=== PATIENT | female | born 1995 | race Hispanic/Latino ===

== ENCOUNTER 2018-12-06 20:21 | Emergency (ER) | payer SELFPAY ==
[2018-12-06 21:39] LABS: Absolute Lymphocytes (CBC) 3.1 K/uL (0.7-4.9); Absolute Monocytes 0.9 K/uL (0.1-1.3); Absolute Neutrophil 6.7 K/uL (1.8-8.0); Basophils % 0.9 % (0-1.3); Eosinophils % 0.6 % (0-4.4); Hematocrit 38.8 % (36.0-45.0); Lymphocytes % 28.2 % (15.3-44.8); MPV 7.9 fL (7.6-11.3); Monocytes % 8.6 % (3.3-12.3); RBC Red Blood Cell Count 4.41 M/uL (3.86-4.86)
[2018-12-06 21:56] LABS: BUN Blood Urea Nitrogen 11 mg/dL (7-18); Bicarbonate 24 mmol/L (21-32); Glucose Level 86 mg/dL (74-106); Potassium 3.4 mmol/L (3.5-5.1); Sodium Level 141 mmol/L (136-145)
--- NOTE | 2018-12-06 22:32 | ER ---
Nurse's Notes [facility] Name: Rafaela Farmer Age: 23 yrs Sex: Female : 1995 Arrival Date: 12/06/2018 Time: 20:24 Bed 13 Private MD: Diagnosis: Other specified abnormal uterine and vaginal bleeding-Secondary to Contraceptive use Presentation: 12/06 20:38 Presenting complaint: Patient states: "My and my had unprotected sex and I took lp1 Plan B, but I've been bleeding for 9 days and beginning to get light headed, nauseous"; Complaint of pelvic pain, vaginal bleeding with clots. Transition of care: patient was not received from another setting of care. Onset of symptoms was December 06, 2018. Risk Assessment: Do you want to hurt yourself or someone else? Patient reports no desire to harm self or others. Initial Sepsis Screen: Does the patient meet any 2 criteria? No. Patient's initial sepsis screen is negative. Does the patient have a suspected source of infection? No. Patient's initial sepsis screen is negative. Care prior to arrival: None. 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 - Social history:: Smoking status: Patient/guardian denies using tobacco. - Ebola Screening: : No symptoms or risks identified at this time. Screenin:35 Abuse screen: Denies threats or abuse. Denies injuries from another. Nutritional rr5 screening: No deficits noted. Tuberculosis screening: No symptoms or risk factors identified. Fall Risk IV access (20 points). Total Freedman Fall Scale indicates No Risk (0-24 pts). Assessment: 21:00 General: Appears in no apparent distress. comfortable, Behavior is calm, cooperative, rr5 appropriate for age. 21:00 Pain: Denies pain. Neuro: Level of Consciousness is awake, alert, obeys commands, rr5 Oriented to person, place, time, situation, Appropriate for age. Cardiovascular: Capillary refill < 3 seconds Patient's skin is warm and dry. Respiratory: Airway is patent Respiratory effort is even, unlabored, Respiratory pattern is regular, symmetrical. GI: No signs and/or symptoms were reported involving the gastrointestinal system. : Reports vaginal bleeding that is bright red, moderate flow, since yesterday. EENT: No signs and/or symptoms were reported regarding the EENT system. Derm: Skin is intact, Skin temperature is warm. Musculoskeletal: Capillary refill < 3 seconds, Range of motion: intact in all extremities. 21:00 : Urine is clear. rr5 21:35 Reassessment: Patient appears in no apparent distress at this time. No changes from rr5 previously documented assessment. Patient is alert, oriented x 3, equal unlabored respirations, skin warm/dry/pink. awaiting for result. 22:40 Reassessment: Patient appears in no apparent distress at this time. Patient is alert, rr5 oriented x 3, equal unlabored respirations, skin warm/dry/pink. discharge instruction given and explained without complaints made. Vital Signs: 20:39 BP 134 / 91; Pulse 70; Resp 18; Temp 99.2(O); Pulse Ox 100% on R/A; Weight 86.18 kg; lp1 Height 5 ft. 1 in. (154.94 cm); Pain 8/10; 21:30 BP 121 / 76; Pulse 79; Resp 16; Pulse Ox 98% on R/A; Pain 0/10; rr5 22:44 BP 118 / 87; Pulse 73; Resp 17; Pulse Ox 99% on R/A; Pain 0/10; rr5 20:39 Body Mass Index 35.90 (86.18 kg, 154.94 cm) lp1 ED Course: 20:24 Patient arrived in ED. do 20:39 Triage completed. lp1 20:40 Arm band placed on left wrist. lp1 20:43 Justin Tomlin PA is PHCP. jr8 20:43 Anoop Lawrence MD is Attending Physician. jr8 20:46 Ashvin Moreira RN is Primary Nurse. rr5 21:00 Patient has correct armband on for positive identification. Placed in gown. Bed in low rr5 position. Call light in reach. Side rails up X2. Pulse ox on. NIBP on. 21:15 Inserted saline lock: 20 gauge in right antecubital area, using aseptic technique. mt Blood collected. 22:44 No provider procedures requiring assistance completed. IV discontinued, intact, rr5 bleeding controlled, No redness/swelling at site. Pressure dressing applied. Administered Medications: No medications were administered Outcome: 22:32 Discharge ordered by . carli 22:44 Discharged to home ambulatory. rr5 22:44 Condition: stable 22:44 Discharge instructions given to patient, Instructed on discharge instructions, follow up and referral plans. Demonstrated understanding of instructions, follow-up care. 22:45 Patient left the ED. rr5 Signatures: Katherine Hunt, RN RN lp1 Justin Tomlin PA PA jr8 Sravanthi Moreno, [place] Ashvin Valle, RN RN rr5
--- NOTE | 2018-12-06 22:32 | EDPHYS ---
Physician Documentation [facility] Name: Rafaela Farmer Age: 23 yrs Sex: Female : 1995 Arrival Date: 12/06/2018 Time: 20:24 Bed 13 Private MD: ED Physician Anoop Lawrence HPI: 12/06 22:06 This 23 yrs old Female presents to ER via Ambulatory with complaints of jr8 Vaginal Bleeding, Nausea. 22:06 The patient presents with pelvic pain, that is located in/on the suprapubic area, the jr8 pain does not radiate, the pain is described as crampy, vaginal bleeding that is heavy, with clots, reports using 4 pads or tampons per day. Onset: The symptoms/episode began/occurred gradually, 8 day(s) ago. Associated signs and symptoms: Pertinent positives: nausea, vomiting, Pertinent negatives: constipation, diarrhea, dyspareunia, dysuria, fever, hematuria, vaginal discharge. Severity of symptoms: in the emergency department the symptoms are unchanged, a " 6" out of "10". The patient is sexually active, reportedly has a single partner, does not use protection during intercourse. The patient has not experienced similar symptoms in the past. The patient has not recently seen a physician. Patient reports she took plan B eight days ago. The next day she started experiencing vaginal bleeding and suprapubic pain that has been becoming more severe through the week. Reports BRB with "clots." Also reports fatigue and dizziness with one episode of vomiting. . 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 - Social history:: Smoking status: Patient/guardian denies using tobacco. - Ebola Screening: : No symptoms or risks identified at this time. ROS: 22:06 Positive for pelvic pain, vaginal bleeding, menstrual abnormality, Negative for jr8 urinary symptoms, flank pain, burning with urination, difficulty urinating, bladder incontinence, foul smelling urine, vaginal discharge, missed period. 22:06 Cardiovascular: Negative for chest pain, palpitations, and edema, Respiratory: Negative for shortness of breath, cough, wheezing, and pleuritic chest pain, MS/Extremity: Negative for injury and deformity, Skin: Negative for injury, rash, and discoloration, Neuro: Negative for headache, weakness, numbness, tingling, and seizure. 22:06 Constitutional: Positive for fatigue, malaise, Negative for body aches, chills, fever. 22:06 Abdomen/GI: Positive for nausea and vomiting, abdominal cramps. Exam: 22:10 Constitutional: This is a well developed, well nourished patient who is awake, alert, jr8 and in no acute distress. Head/Face: Normocephalic, atraumatic. Eyes: Pupils equal round and reactive to light, extra-ocular motions intact. Lids and lashes normal. Conjunctiva and sclera are non-icteric and not injected. Cornea within normal limits. Periorbital areas with no swelling, redness, or edema. ENT: Nares patent. No nasal discharge, no septal abnormalities noted. Tympanic membranes are normal and external auditory canals are clear. Oropharynx with no redness, swelling, or masses, exudates, or evidence of obstruction, uvula midline. Mucous membranes moist. Cardiovascular: Regular rate and rhythm with a normal S1 and S2. No gallops, murmurs, or rubs. Normal PMI, no JVD. No pulse deficits. Respiratory: Lungs have equal breath sounds bilaterally, clear to auscultation and percussion. No rales, rhonchi or wheezes noted. No increased work of breathing, no retractions or nasal flaring. Skin: Warm, dry with normal turgor. Normal color with no rashes, no lesions, and no evidence of cellulitis. MS/ Extremity: Pulses equal, no cyanosis. Neurovascular intact. Full, normal range of motion. Neuro: Awake and alert, GCS 15, oriented to person, place, time, and situation. Cranial nerves II-XII grossly intact. Motor strength 5/5 in all extremities. Sensory grossly intact. Cerebellar exam normal. Normal gait. 22:10 Abdomen/GI: Inspection: abdomen appears normal, Bowel sounds: normal, Palpation: soft, mild abdominal tenderness, in the suprapubic area, no appreciated organomegaly. Vital Signs: 20:39 BP 134 / 91; Pulse 70; Resp 18; Temp 99.2(O); Pulse Ox 100% on R/A; Weight 86.18 kg; lp1 Height 5 ft. 1 in. (154.94 cm); Pain 8/10; 21:30 BP 121 / 76; Pulse 79; Resp 16; Pulse Ox 98% on R/A; Pain 0/10; rr5 22:44 BP 118 / 87; Pulse 73; Resp 17; Pulse Ox 99% on R/A; Pain 0/10; rr5 20:39 Body Mass Index 35.90 (86.18 kg, 154.94 cm) lp1 MDM: 20:43 Patient medically screened. jr8 22:30 Data reviewed: vital signs, nurses notes, lab test result(s), and as a result, I will jr8 discharge patient. Data interpreted: Pulse oximetry: on room air is 100 %. Interpretation: normal. Counseling: I had a detailed discussion with the patient and/or guardian regarding: the historical points, exam findings, and any diagnostic results supporting the discharge/admit diagnosis, lab results, the need for outpatient follow up, an OB/Gyne specialist, to return to the emergency department if symptoms worsen or persist or if there are any questions or concerns that arise at home. ED course: Detailed discussion with patient that you can have menstrual abnormality after the utilization of Plan B. H/H within normal limits. Needs to f/u with director community health nursing for further care at this point . 12/06 20:53 Order name: CBC with Diff; Complete Time: 21:52 [facility] 12/06 20:53 Order name: Basic Metabolic Panel; Complete Time: 22:03 8 12/06 20:53 Order name: IV; Complete Time: 21:16 [facility] 12/06 22:02 Order name: Urine Test (obtain specimen); Complete Time: 22:28 [facility] Administered Medications: No medications were administered Disposition: 12/07 01:40 Co-signature as Attending Physician, Anoop Lawrence MD. rn Disposition: 12/06/18 22:32 Discharged to Home. Impression: Other specified abnormal uterine and vaginal bleeding - Secondary to Contraceptive use . - Condition is Stable. - Discharge Instructions: Abnormal Uterine Bleeding. - Medication Reconciliation Form, Thank You Letter, Antibiotic Education, Prescription Opioid Use form. - Follow up: Private Physician; When: 2 - 3 days; Reason: Recheck today's complaints, Continuance of care, Re-evaluation by your physician. - Problem is new. - Symptoms have improved. Signatures: Dispatcher [employer] EDMS Anoop Lawrence MD MD rn Pena, Laura RN RN lp1 Justin Tomlin PA PA jr8 Ashvin Moreira RN RN rr5 Corrections: (The following items were deleted from the chart) 12/06 22:45 22:32 12/06/2018 22:32 Discharged to Home. Impression: Other specified abnormal uterine rr5 and vaginal bleeding - Secondary to Contraceptive use . Condition is Stable. Forms are Medication Reconciliation Form, Thank You Letter, Antibiotic Education, Prescription Opioid Use. Follow up: Private Physician; When: 2 - 3 days; Reason: Recheck today's complaints, Continuance of care, Re-evaluation by your physician. Problem is new. Symptoms have improved. jr8
== END 2018-12-06 22:45 | disposition home or self-care (01) ==
LOC: ER 20:21
DX: N93.8 Other specified abnormal uterine and vaginal bleeding (principal)
CPT/HCPCS: 36415; 80048; 85025; 99283